=== PATIENT | male | born 1975 | race African-American/Black ===

== ENCOUNTER 2017-10-07 00:49 | Emergency (ER) | payer MEDICAID ==
[~2017-10-07] VITALS: Ht 185.4 cm; Wt 126.1 kg
[~2017-10-07 00:49] MED LIST: AMLO10TA2; INSLANTI
[2017-10-07 01:10] VITALS: BP 169/95
[2017-10-07] MEDS ORDERED: LIDOCAINE 1% HCL (LOCAL ANESTH.) INJ 20ML MDV IJ ONE (02:45)
[2017-10-07] MEDS ORDERED: BACITRACIN TOP OINT 1 UD PKG TOP ONE (02:45)
[2017-10-07] MEDS ORDERED: TETANUS-DIPTH-ACEL PERTUSSIS 0.5ML SYRG IM ONE (03:15)
== END 2017-10-07 03:25 | disposition home or self-care (01) ==
LOC: ER 00:49
DX: S61.012A Laceration without foreign body of left thumb without damage to nail, initial encounter (principal); I10 Essential (primary) hypertension; E11.9 Type 2 diabetes mellitus without complications; Z79.4 Long term (current) use of insulin; W45.8XXA Other foreign body or object entering through skin, initial encounter; Y93.89 Activity, other specified; Y92.89 Other specified places as the place of occurrence of the external cause; Y99.8 Other external cause status
CPT/HCPCS: 12002; 90471; 90715